=== PATIENT | female | born 2000 | race Hispanic/Latino ===

== ENCOUNTER 2021-09-29 22:55 | Emergency (ER) | payer BC ==
[2021-09-29 23:21] LABS: Urine Blood Negative (Negative); Urine Glucose Negative (Negative); Urine Protein Negative (Negative); Urine Specific Gravity 1.025 (1.005-1.030); Urine pH 5.5 (5.0-7.0)
[2021-09-29 23:55] LABS: Urine Specific Gravity/Preg 1.025 (1.005-1.030)
[2021-09-30] MEDS ORDERED: HYDROCODONE/APAP 7.5/325 MG TAB ONE (00:05)
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
[2021-09-30 01:51] VITALS: BP 123/76; TEMP 98.7; O2SAT 98
--- NOTE | 2021-09-30 07:27 | RAD REPORT ---
EXAM DESCRIPTION: RAD - Hip Right 2 View - 09/29/2021 11:38 pm CLINICAL HISTORY: hip pain COMPARISON: No comparisons FINDINGS: AP and frog-leg views of the right hip were obtained. There is no fracture or dislocation. No AVN or focal head abnormality. No acute or destructive bony p rocess seen. IMPRESSION: Negative right hip examination for acute or significant findings. MR imaging outpatient follow-up could be performed if the patient has continued, unexplained hip pain .
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
== END 2021-09-30 01:44 | disposition home or self-care (01) ==
LOC: ER 22:55
DX: G89.11 Acute pain due to trauma (principal); S50.11XA Contusion of right forearm, initial encounter; S40.021A Contusion of right upper arm, initial encounter; V40.6XXA Car passenger injured in collision with pedestrian or animal in traffic accident, initial encounter; Z88.1 Allergy status to other antibiotic agents
CPT/HCPCS: 70450; 81003; 81025; 99284